=== PATIENT | male | born 1985 | race Caucasian/White ===

== ENCOUNTER 2017-12-20 04:38 | Emergency (ER) | payer SELFPAY ==
[~2017-12-20] VITALS: Ht 175.3 cm; Wt 68.0 kg
[~2017-12-20 04:38] MED LIST: AZIT-21 PO; CPR500T; CYCL10TA9 PO; DOXY100C2 PO; NAPR-243 PO; SULF1TAB38 PO; TRAM-21 PO
--- NOTE | 2017-12-20 04:53 | ED Respiratory ---
General Chief Complaint: Chest Wall/Rib Pain Stated Complaint: PAIN IN RIBS,SOB Source: patient Exam Limitations: no limitations History of Present Illness Date Seen by Provider: Dec 20, 2017 Time Seen by Provider: 04:44 Initial Comments Patient presents to the ER by private conveyance with a chief complaint that yesterday evening he started having a twinge of pain in his right lower side in the ribs region but not reproducible by pushing on his fluids. Is also been coughing a lot for the last day or 2. He says he started the Chantix about 10 days ago and 3 days ago was completely quit smoking from 2 packs a day. His cough is productive he's had no fevers or chills. He's had no nausea vomiting or diarrhea. He has not been on antibiotics or steroid use. No travel. He does not have a history of COPD or asthma. He does not take any medications otherwise nor does he have any significant medical history or surgical history. No primary family history of early onset coronary artery disease. No known history of hypothyroidism, hypercholesterolemia, hypertension. He has not tried Tylenol or Motrin yet and he has tried some warm compresses and soaking in a bath tub with little relief. Allergies and Home Medications Allergies Coded Allergies: No Known Drug Allergies (Unverified Allergy, Mild, 03/01/09) Patient Home Medication List Home Medication List Reviewed: Yes Constitutional: No chills, No diaphoresis, No fever, malaise EENTM: other (left eye conjunctival hemorrhage, mild medial secondary to changing a transmission), No ear discharge, No ear pain Respiratory: cough, phlegm, short of breath, No wheezing Cardiovascular: see HPI, chest pain (right lower ribs), No edema, No Hx of Intervention, No palpitations, No syncope, No vascular heart diseas Gastrointestinal: No abdominal pain, No constipation, No diarrhea, No nausea Genitourinary: No discharge, No dysuria Musculoskeletal: No back pain, No joint pain Skin: other (abrasions on his arms and scalp from changing a transmission recently) Past Ghjviym-Nhpyka-Hqnwyc Hx Patient Social History Alcohol Use: Denies Use Recreational Drug Use: No Smoking Status: Former Smoker Type Used: Cigarettes Former Smoker, Quit: Dec 17, 2017 Recent Foreign Travel: No Contact w/Someone Who Travel: No Physical Exam Vital Signs Vital Signs - First Documented 12/20/17 04:47 Temp 98.7 Pulse 93 Resp 18 B/P (MAP) 131/86 (101) Pulse Ox 95 O2 Delivery Room Air Capillary Refill : General Appearance: WD/WN, no apparent distress Eyes: Bilateral Eye Normal Inspection, Bilateral Eye PERRL, Bilateral Eye EOMI HEENT: PERRL/EOMI, pharynx normal, other (medial left eye conjunctival hemorrhage, mild; superficial scalp abrasions, clean, dry, nonerythematous without discharge or drainage.) Neck: supple, normal inspection Respiratory: chest non-tender, lungs clear, normal breath sounds, no respiratory distress, no accessory muscle use Cardiovascular: normal peripheral pulses, regular rate, rhythm, no edema Gastrointestinal: non tender, soft Neurologic/Psychiatric: alert, normal mood/affect, oriented x 3 Skin: other (abrasions on forearms and scalp consistent with recent automotive work. Superficial, nonerythematous, hemostatic.) Progress/Results/Core Measures Suspected Sepsis SIRS Temperature: Pulse: Respiratory Rate: Laboratory Tests 12/20/17 04:55: White Blood Count 14.7H Blood Pressure / Mean: Laboratory Tests 12/20/17 04:55: Creatinine 0.99, Platelet Count 278, Total Bilirubin 0.3 Results/Orders Lab Results Laboratory Tests Test 12/20/17 04:55 Range/Units White Blood Count 14.7 H 4.3-11.0 10^3/uL Red Blood Count 4.89 4.35-5.85 10^6/uL Hemoglobin 16.6 13.3-17.7 G/DL Hematocrit 46 40-54 % Mean Corpuscular Volume 93 80-99 FL Mean Corpuscular Hemoglobin 34 25-34 PG Mean Corpuscular Hemoglobin Concent 36 32-36 G/DL Red Cell Distribution Width 12.6 10.0-14.5 % Platelet Count 278 130-400 10^3/uL Mean Platelet Volume 9.9 7.4-10.4 FL Neutrophils (%) (Auto) 68 42-75 % Lymphocytes (%) (Auto) 21 12-44 % Monocytes (%) (Auto) 8 0-12 % Eosinophils (%) (Auto) 4 0-10 % Basophils (%) (Auto) 0 0-10 % Neutrophils # (Auto) 9.9 H 1.8-7.8 X 10^3 Lymphocytes # (Auto) 3.1 1.0-4.0 X 10^3 Monocytes # (Auto) 1.1 H 0.0-1.0 X 10^3 Eosinophils # (Auto) 0.6 H 0.0-0.3 10^3/uL Basophils # (Auto) 0.1 0.0-0.1 10^3/uL Sodium Level 138 135-145 MMOL/L Potassium Level 4.0 3.6-5.0 MMOL/L Chloride Level 105 98-107 MMOL/L Carbon Dioxide Level 18 L 21-32 MMOL/L Anion Gap 15 H 5-14 MMOL/L Blood Urea Nitrogen 15 7-18 MG/DL Creatinine 0.99 0.60-1.30 MG/DL Estimat Glomerular Filtration Rate > 60 BUN/Creatinine Ratio 15 Glucose Level 112 H 70-105 MG/DL Calcium Level 9.5 8.5-10.1 MG/DL Total Bilirubin 0.3 0.1-1.0 MG/DL Aspartate Amino Transf (AST/SGOT) 31 5-34 U/L Alanine Aminotransferase (ALT/SGPT) 30 0-55 U/L Alkaline Phosphatase 92 40-136 U/L C-Reactive Protein High Sensitivity 0.37 0.00-0.50 MG/DL Total Protein 8.5 H 6.4-8.2 GM/DL Albumin 4.5 3.2-4.5 GM/DL My Orders Orders - GEORGE WATERS Cbc With Automated Diff (12/20/17 04:46) Comprehensive Metabolic Panel (12/20/17 04:46) Chest Pa/Lat (2 View) (12/20/17 04:46) Hs C Reactive Protein (12/20/17 04:47) Ibuprofen Tablet (Motrin Tablet) (12/20/17 05:00) Medications Given in ED Current Medications Medications Dose Ordered Sig/Alejandro Route Start Time Stop Time Status Last Admin Dose Admin Ibuprofen 800 mg ONCE ONCE PO 12/20/17 05:00 12/20/17 05:01 DC 12/20/17 04:58 800 MG Vital Signs/I&O Vital Sign - Last 12Hours 12/20/17 12/20/17 04:47 04:58 Temp 98.7 98.7 Pulse 93 Resp 18 B/P (MAP) 131/86 (101) Pulse Ox 95 O2 Delivery Room Air Capillary Refill : Progress Note #1: Time: 04:52 Progress Note ED ACS risk for coronary disease is low. His pain is pleuritic. May also be related to his diaphragm or intra-abdominal process although he is having a nontender abdominal exam. We'll get a 2 view chest x-ray and some basic labs. We 'll start her some Motrin see if this doesn't help his symptoms. His productive cough is more concerning for bronchitis/pneumonia. His use of Chantix and recently quitting smoking may be contributing to his cilia reawakening. Progress Note #2: Time: 05:38 Progress Note Mild leukocytosis with left shift, productive cough consistent with either pneumonia versus bronchitis. This would explain his right lower lobe pain. Patient's lab also reveals maybe a little acidotic dry with chief complaint overdosing infiltrate on the chest x-ray. We will encourage him to drink plenty of fluids, put him on a couple antibiotics and have him follow-up with a primary care physician in a week. Diagnostic Imaging Diagonstic Imaging: Xray Plain Films/CT/US/NM/MRI: chest (2v) Comments No acute infiltrates seen. Reviewed: Reviewed by Me Departure Impression Impression: Primary Impression: Pneumonia Qualified Codes: J18.1 - Lobar pneumonia, unspecified organism Disposition: 01 HOME, SELF-CARE Condition: Stable Departure-Patient Inst. Referrals: KELLI CONONRS DO (PCP/Family) Primary Care Physician Patient Instructions: Community-Acquired Pneumonia, Adult (DC) Add. Discharge Instructions: Drink lots of fluids such as water or sports drinks. He did some rest and use Tylenol 1000 mg every 8 hours as needed and/or ibuprofen 800 mg every 8 hours as needed for pain. Take 2 tablets of azithromycin today and then one tablet every day after that until they are gone. Take one capsule of Omnicef twice a foot 10 days. Follow up in 1-2 weeks with your primary care physician for further evaluation of your chest pain and pneumonia. If you're not seeing some improvement by day four then return to your primary care physician sooner. If you're having worsening shortness of breath, chest pain, nausea or fevers return to care sooner. Use a humidifier as well as vapor rubs such as Vicks or Mentholatum and turn the heat down in your house. All discharge instructions reviewed with patient and/or family. Voiced understanding. Scripts Cefdinir (Cefdinir) 300 Mg Capsule 300 MG PO BID for 10 Days, #20 CAP 0 Refills Prov: GEORGE WATERS 12/20/17 Azithromycin (Azithromycin) 250 Mg Tablet 250 MG PO UD, #6 TAB TAKE 2 TABLETS ON DAY ONE THEN TAKE 1 TABLET DAILY FOR FOUR MORE DAYS Prov: GEORGE WATERS 12/20/17 Work/School Note: Work Release Form Date Seen in the Emergency Department: Dec 20, 2017 Return to Work: Dec 22, 2017 Restrictions: No Restrictions Copy Copies To 1: KELLI CONNORS DO GEORGE WATERS Dec 20, 2017 04:53
[2017-12-20] MEDS ORDERED: IBUPROFEN 800 MG (MOTRIN) TAB PO ONE (05:00)
[2017-12-20 05:04] LABS: BASOPHILS # (AUTO) 0.1 10^3/uL (0.0-0.1); BASOPHILS % (AUTO) 0 % (0-10); EOSINOPHILS # (AUTO) 0.6 10^3/uL (0.0-0.3); EOSINOPHILS % (AUTO) 4 % (0-10); HEMATOCRIT 46 % (40-54); HEMOGLOBIN 16.6 G/DL (13.3-17.7); LYMPHOCYTES # (AUTO) 3.1 X 10^3 (1.0-4.0); LYMPHOCYTES % (AUTO) 21 % (12-44); MEAN CORPUSCULAR HEMOGLOBIN 34 PG (25-34); MEAN CORPUSCULAR HGB CONC 36 G/DL (32-36); MEAN CORPUSCULAR VOLUME 93 FL (80-99); MEAN PLATELET VOLUME 9.9 FL (7.4-10.4); MONOCYTES # (AUTO) 1.1 X 10^3 (0.0-1.0); MONOCYTES % (AUTO) 8 % (0-12); NEUTROPHILS # (AUTO) 9.9 X 10^3 (1.8-7.8); NEUTROPHILS % (AUTO) 68 % (42-75); PLATELET COUNT 278 10^3/uL (130-400); RED BLOOD COUNT 4.89 10^6/uL (4.35-5.85); RED CELL DISTRIBUTION WIDTH 12.6 % (10.0-14.5); WHITE BLOOD COUNT 14.7 10^3/uL (4.3-11.0)
[2017-12-20 05:30] LABS: ALANINE AMINOTRANSFERASE 30 U/L (0-55); ALBUMIN 4.5 GM/DL (3.2-4.5); ALKALINE PHOSPHATASE 92 U/L (40-136); BILIRUBIN,TOTAL 0.3 MG/DL (0.1-1.0); BUN/CREATININE RATIO 15; CALCIUM 9.5 MG/DL (8.5-10.1); CARBON DIOXIDE 18 MMOL/L (21-32); CHLORIDE 105 MMOL/L (98-107); CREATININE SERUM 0.99 MG/DL (0.60-1.30); GFR ESTIMATED > 60; GLUCOSE 112 MG/DL (70-105); SODIUM 138 MMOL/L (135-145); TOTAL PROTEIN 8.5 GM/DL (6.4-8.2)
[2017-12-20] MEDS ORDERED: AZIT250T12 PO (05:43)
[2017-12-20] MEDS ORDERED: CEFD300C3 PO (05:43)
[2017-12-20 05:54] VITALS: BP 131/86
--- NOTE | 2017-12-20 08:21 | Diagnostic Imaging Report ---
INDICATION: Shortness of breath PA and lateral chest obtained at 5:52 a.m. and compared with 01/07/2011. Heart and mediastinal silhouette are normal in appearance. The lungs are clear. There is no pneumothorax or pleural fluid. IMPRESSION: No acute process in the chest. Dictated by: Dictated on workstation # [id number]
== END 2017-12-20 05:54 | disposition home or self-care (01) ==
LOC: EDUNIT# 04:38 → ER 04:41
DX: J18.9 Pneumonia, unspecified organism (principal); Z87.891 Personal history of nicotine dependence
CPT/HCPCS: 36415; 71046; 80053; 85025; 86141

== ENCOUNTER 2021-07-02 18:48 | Emergency (ER) | payer SELFPAY ==
[~2021-07-02] VITALS: Ht 175.3 cm; Wt 72.6 kg
[~2021-07-02 18:48] MED LIST changes: +AZIT250T12 PO; +CEFD300C3 PO
[2021-07-02 19:00] VITALS: BP 135/94
[2021-07-02] MEDS ORDERED: DOXY100T2 PO (19:09)
--- NOTE | 2021-07-02 19:09 | ED Integumentary General ---
General Chief Complaint: Skin/Wound Problems Stated Complaint: ABCESS GROIN Source: patient Exam Limitations: no limitations History of Present Illness Date Seen by Provider: Jul 02, 2021 Time Seen by Provider: 19:06 Initial Comments To ER with some redness to the right inguinal region since yesterday is concerned this may be a spider bite. No nausea no vomiting no fever no chills no known cause. Timing/Duration: yesterday, getting worse Severity: moderate Associated Symptoms: denies symptoms Allergies and Home Medications Allergies Coded Allergies: No Known Drug Allergies (Unverified Allergy, Mild, 03/01/09) Patient Home Medication List Home Medication List Reviewed: Yes Discontinued Medications Azithromycin (Azithromycin) 250 Mg Tablet, 250 MG PO UD Discontinued Reason: No Longer Taking Prescribed by: GEORGE WATERS on 12/20/17542 Last Action: Discontinued Cefdinir (Cefdinir) 300 Mg Capsule, 300 MG PO BID Discontinued Reason: No Longer Taking Prescribed by: GEORGE WATERS on 12/20/17542 Last Action: Discontinued Review of Systems Review of Systems Constitutional: see HPI EENTM: see HPI Respiratory: no symptoms reported Cardiovascular: no symptoms reported Genitourinary: no symptoms reported Musculoskeletal: no symptoms reported Skin: see HPI Psychiatric/Neurological: No Symptoms Reported Endocrine: No Symptoms Reported Past Okskuex-Zffzxc-Ilajen Hx Patient Social History Tobacco Use?: Yes Tobacco type used: Cigarettes Smoking Status: Current Everyday Smoker Substance use?: No Alcohol Use?: No Pt feels they are or have been: No Immunizations Up To Date Tetanus Booster (TDap): Unknown First/Initial COVID19 Vaccinat: 02/12 Second COVID19 Vaccination Brent: 03/15 COVID19 Vaccine Corporate Accounting Manager: kaitlyn Seasonal Allergies Seasonal Allergies: No Past Medical History Surgeries: No Respiratory: No Cardiac: No Neurological: No Genitourinary: No Gastrointestinal: No Musculoskeletal: No Endocrine: No HEENT: No Cancer: No Psychosocial: No Integumentary: No Blood Disorders: No Physical Exam Vital Signs Capillary Refill : General Appearance: WD/WN, no apparent distress HEENT: PERRL/EOMI, normal ENT inspection Respiratory: normal breath sounds, no respiratory distress Gastrointestinal: normal bowel sounds, non tender, soft Extremities: normal range of motion, non-tender Neurologic/Psychiatric: alert, normal mood/affect, oriented x 3 Skin: normal color Skin Problem Character: abscess, other (To the right groin is a fluctuant 2 x 4 cm abscess. Bedside ultrasound confirms that this is fluid-filled. I did recommend incision and drainage. He declines stating that he is not a fan of needles. He would like to just try oral antibiotics discussed with him that this would not likely cure this but we could try it. He will return for any worsening.) Departure Impression Primary Impression: Abscess Disposition: HOME, SELF-CARE Condition: Stable Departure-Patient Inst. Decision time for Depature: 19:08 Referrals: [facility] [place] (PCP/Family) Primary Care Physician Patient Instructions: Skin Abscess Add. Discharge Instructions: 1. Warm compresses to the area. If this enlarges significantly you will need to come in to have this cut open. All discharge instructions reviewed with patient and/or family. Voiced understanding. Scripts Doxycycline Hyclate (Doxycycline Hyclate) 100 Mg Tablet 100 MG PO BID, #14 TAB 0 Refills Prov: RYAN WESLEY APRN 07/02/21 RYAN WESLEY APRN Jul 02, 2021 19:09
[2021-07-02] MEDS ORDERED: DOXYCYCLINE 100 MG (VIBRAMYCIN) TABLET PO SCH (19:15)
== END 2021-07-02 19:14 | disposition home or self-care (01) ==
LOC: EDUNIT# 18:48 → ER 18:50
DX: L02.214 Cutaneous abscess of groin (principal); F17.210 Nicotine dependence, cigarettes, uncomplicated
CPT/HCPCS: 99283